=== PATIENT | female | born 2000 | race Caucasian/White ===

== ENCOUNTER → 2025-04-18 | Outpatient (CLI) | payer OTHER, SELFPAY ==
[2025-04-19 21:07] LABS: Chlamydia By Nucleic Acid AMP Negative (Negative); Gonococcus By Nucleic Acid AMP Negative (Negative)
[2025-04-25 00:07] LABS: HPV APTIMA, High Risk Negative (Negative)
== END | disposition home or self-care (01) ==
PROVIDERS: Visit Provider Nurse Practitioner Women's Health
DX: Z12.4 Encounter for screening for malignant neoplasm of cervix (principal); Z11.3 Encounter for screening for infections with a predominantly sexual mode of transmission
CPT/HCPCS: 87491; 87591; 87624; 88175; G0145

== ENCOUNTER → 2025-04-28 | Outpatient (CLI) | payer OTHER, SELFPAY ==
--- OUTSIDE RECORDS SUMMARY | 2025-04-28 18:54 | XMS RPT_ITS | CCD ---
Author Organization [facility] Care Team Providers Care On Car Supervisor Name Role Phone Carmella Augustin Attending Provider Carmella Clifford Attending Unavailable Carmella Clifford Attending Unavailable Problems Problem Classification Problem Date Documented Date Episodic/Chronic Female infertility (2 sources) Female infertility associated with anovulation; Translations: [Female infertility associated with anovulation] Onset: 04-18-2025 Chronic Immunizations and screening for infectious disease (2 sources) Encounter for screening for infections with a predominantly sexual mode of transmission; Translations: [Encounter for screening for infections with a predominantly sexual mode of transmission] Onset: 04-20-2025 Episodic Other screening for suspected conditions (not mental disorders or infectious disease) (4 sources) Encounter for screening for malignant neoplasm of cervix; Translations: [Encounter for screening for malignant neoplasm of cervix] Onset: 04-18-2025 Episodic Other skin disorders (1 source) Hidradenitis suppurativa; Translations: [Hidradenitis suppurativa] 04-18-2025 Episodic Results Test Name Value Interpretation Reference Range Facil ity PAP I-G w/rfx hrHPV-Aptimaon 04-25-2025 ADEQ Comment Normal . [facility] Comment on above: Order Comment: Speci men Comment: [id number] Specimen Comment: No. of containers..01 ThinPrep Vial Result Comment: Sati sfactory for evaluation. Endocervical and/or squamous metaplastic cells (endocervical component) are present. Performed By: #### L 7000.1800, L7400.0353 #### [facility] [address] [place], [address] COMM . Normal . [facility] Comment on above: Order Comment: Speci men Comment: [id number] Specimen Comment: No. of containers..01 ThinPrep Vial Performed By: #### L 7000.1800, L7400.0353 #### [facility] [address] [place], [place], [id number] COMMENT Comment Normal . [facility] Comment on above: Order Comment: Speci men Comment: [id number] Specimen Comment: No. of containers..01 ThinPrep Vial Result Comment: This liquid based ThinPrep(R) pap test was screened with the use of an image guided system. Performed By: #### L 7000.1800, L7400.0353 #### [facility] [address] [facility] [place], [place], [id number] DIAG Comment Abnormal . [facility] Comment on above: Order Comment: Speci men Comment: [id number] Specimen Comment: No. of containers..01 ThinPrep Vial Result Comment: EPIT HELIAL CELL ABNORMALITY. ATYPICAL SQUAMOUS CELLS OF UNDETERMINED SIGNIFICANCE (ASC-US). Performed By: #### L 7000.1800, L7400.0353 #### [facility] [address] [facility] [place], [address] HPV APTIMA, HR Negative Normal Negative [facility] Comment on above: Order Comment: Speci men Comment: [id number] Specimen Comment: No. of containers..01 ThinPrep Vial Result Comment: This nucleic acid amplification test detects fourteen high- risk HPV types (16,18,31,33,35,39,45,51,52,56,58,59,66,68) without differentiation. Performed at: [address] [id number] Director Telemetry: Jackie Delgado MD, Phone: [phone] Performed at: =[address] [id number] Director Telemetry: Jackie Delgado MD, Phone: [phone] Performed By: #### L 7000.1800, L7400.0353 #### [facility] [address] [place], [place], [address] HPV RFLX Comment Normal . [facility] Comment on above: Order Comment: Speci men Comment: [id number] Specimen Comment: No. of containers..01 ThinPrep Vial Result Comment: See below for HPV testing results. Performed By: #### L 7000.1800, L7400.0353 #### [facility] [address] [place], [address] PAPSMR Comment Normal . [facility] Comment on above: Order Comment: Speci men Comment: [id number] Specimen Comment: No. of containers..01 ThinPrep Vial Result Comment: The Pap smear is a screening test designed to aid in the detection of premalignant and malignant conditions of the uterine cervix. It is not a diagnostic procedure and should not be used as the sole means of detecting cervical cancer. Both false-positive and false-negative reports do occur. Performed By: #### L 7000.1800, L7400.0353 #### [facility] [address] [place], [place], [address] Path.prov.IDC-9 Comment Normal . [facility] Comment on above: Order Comment: Speci men Comment: [id number] Specimen Comment: No. of containers..01 ThinPrep Vial Result Comment: [id number] Performed By: #### L 7000.1800, L7400.0353 #### [facility] [address] [place], [address] PERFORM Comment Normal . [facility] Comment on above: Order Comment: Speci men Comment: [id number] Specimen Comment: No. of containers..01 ThinPrep Vial Result Comment: Imani Moya, Photograph Retoucher (ASCP) Performed By: #### L 7000.1800, L7400.0353 #### [facility] [address] [place], [place], [address] SIGN Comment Normal . [facility] Comment on above: Order Comment: Speci men Comment: [id number] Specimen Comment: No. of containers..01 ThinPrep Vial Result Comment: Gloria Oliver MD, Pathologist Performed By: #### L 7000.1800, L7400.0353 #### [facility] [address] [place], [address] Chlamydia/GC AISHA aptimaon CHLAMY,NUC ACID Negative Normal Negative [facility] Comment on above: Performed By: #### L 7000.1800, L7400.0353 #### [facility] [address] [place], [place], [address] GC BY NUC ACID Negative Normal Negative [facility] Comment on above: Result Comment: Perf ormed at: =G - [facility] [address] [id number] Director Telemetry: Jackie Delgado MD, Phone: [phone] Performed By: #### L 7000.1800, L7400.0353 #### [facility] [address] 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) Chief Complaint: Annual Roll Form Operator Required: No Is patient in pain?: No Allergies No Known Allergies Allergy (Unverified 04/18/25 09:16) Medications ???Medication ???Instructions ???Recorded ???Confirmed ???Type NK 04/18/25 04/18/25 History Is last menstrual period known: Yes Last Menstrual Period: 03/27/25 Post menopausal: No Patient : No : No [facility] Medical History (Updated 04/18/25 @ 10:56 by Carmella Clifford 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, 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) Hidradenitis suppurativa Social History (Updated 04/18/25 @ 09:10 by Nalini Crouch) household members: spouse current occupational status: employed 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 No contraception since 2017, was doing NFP and has been attempting X 1 year. Menses occur every 28-30 days, lasting 4 days but light in amount. She does have issues with acne and hirsutism. Last PAP: 2021 History of abnormal PAP: ASCUS neg hpv Last mammogram: age 38 Female Reproductive History Last Menstrual Period: 03/27/25 Cycle Length: 21-35 Questions: metrorrhagia: No, sexually active: Yes, dyspareunia: No and PCB: No ROS Const Constitutional: Denies fatigue, weight gain or weight loss Cardio Card: Denies chest pain Resp Resp: Denies cough or dyspnea on exertion GI GI: Denies abdominal pain, bloating, change in stool character, constipation or vomiting : Reports as per HPI; Denies difficulty voiding, pelvic pain, urinary frequency, urinary incontinence, urinary urgency, vaginal discharge or vaginal pruritus Exam Const General: cooperative, healthy appearing, no acute distress and well developed Orientation: alert, oriented to person and oriented to place [facility] Head: normal to inspection Face and sinus: normal facial exam Neck Neck: normal visual inspection Thyroid: thyroid normal Lymphatic: no lymphadenopathy noted Chest Breast inspection: normal inspection of the breasts, normal inspection of the axillae and Other (dark hair bilateral areola. ) Breast palpation: normal palpation of the breasts, normal palpation of the axillae and no axillary lymphadenopathy Resp Effort Inspection: normal respiratory effort GI Palpation: soft, no masses and nontender Rectal Exam: deferred External Female Exam: normal external appearance and normal appearance of the urethra Urethra: normal appearance of the urethra and normal palpation Speculum Exam - Vagina: normal appearance of the vagina and normal vaginal discharge Speculum Exam - Cervix: normal appearance of the cervix Bimanual Exam- Vagina Uterus: normal bimanual exam, uterine size normal, uterine shape normal and non-tender Bimanual Exam- Adnexa, other: normal adnexae, no masses, normal and non-tender Pelvic Support: normal Skin General: scars (acne on chest) Neuro General: patient alert and patient oriented x3 Psych Affect: normal affect Coding Level of Care Code Off vis,new,prev 18-39yrs Diagnoses Encounter for gynecological examination with abnormal finding Z01.411 Gynecological examination findings: abnormal findings PRESENT Acne, unspecified acne type L70.9 Acne type: unspecified acne Hirsutism L68.0 Fatigue, unspecified type R53.83 Fatigue type: unspecified Assessment and Plan Assessment and Plan (1) Encounter for routine gynecological examination: Qualifiers: Gynecological examination findings: abnormal findings PRESENT Qualified Code(s): Z01.411 - Encounter for gynecological examination (general) (routine) with abnormal findings (2) Acne: Status: Acute Qualifiers: Acne type: unspecified acne Qualified Code(s): L70.9 - Acne, unspecified Comment: sees derm, laser, face, chest, back (3) Hirsutism: Status: Acute (4) Fatigue: Status: Acute Qualifiers: Fatigue type: unspecified Qualified C (more content not included)... 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 Roll Form Operator Required: No Is patient in pain?: No Allergies No Known Allergies Allergy (Unverified 04/18/25 09:16) Medications ???Medication ???Instructions ???Recorded ???Confirmed ???Type NK 04/18/25 04/18/25 History Is last menstrual period known: Yes Last Menstrual Period: 03/27/25 Post menopausal: No Patient : No : No [facility] Medical History (Updated 04/18/25 @ 10:56 by Carmella Clifford 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, 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) Hidradenitis suppurativa Social History (Updated 04/18/25 @ 09:10 by Nalini Crouch) household members: spouse current occupational status: employed 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 No contraception since 2017, was doing NFP and has been attempting X 1 year. Menses occur every 28-30 days, lasting 4 days but light in amount. She does have issues with acne and hirsutism. Last PAP: 2021 History of abnormal PAP: ASCUS neg hpv Last mammogram: age 38 Female Reproductive History Last Menstrual Period: 03/27/25 Cycle Length: 21-35 Questions: metrorrhagia: No, sexually active: Yes, dyspareunia: No and PCB: No ROS Const Constitutional: Denies fatigue, weight gain or weight loss Cardio Card: Denies chest pain Resp Resp: Denies cough or dyspnea on exertion GI GI: Denies abdominal pain, bloating, change in stool character, constipation or vomiting : Reports as per HPI; Denies difficulty voiding, pelvic pain, urinary frequency, urinary incontinence, urinary urgency, vaginal discharge or vaginal pruritus Exam Const General: cooperative, healthy appearing, no acute distress and well developed Orientation: alert, oriented to person and oriented to place [facility] Head: normal to inspection Face and sinus: normal facial exam Neck Neck: normal visual inspection Thyroid: thyroid normal Lymphatic: no lymphadenopathy noted Chest Breast inspection: normal inspection of the breasts, normal inspection of the axillae and Other (dark hair bilateral areola. ) Breast palpation: normal palpation of the breasts, normal palpation of the axillae and no axillary lymphadenopathy Resp Effort Inspection: normal respiratory effort GI Palpation: soft, no masses and nontender Rectal Exam: deferred External Female Exam: normal external appearance and normal appearance of the urethra Urethra: normal appearance of the urethra and normal palpation Speculum Exam - Vagina: normal appearance of the vagina and normal vaginal discharge Speculum Exam - Cervix: normal appearance of the cervix Bimanual Exam- Vagina Uterus: normal bimanual exam, uterine size normal, uterine shape normal and non-tender Bimanual Exam- Adnexa, other: normal adnexae, no masses, normal and non-tender Pelvic Support: normal Skin General: scars (acne on chest) Neuro General: patient alert and patient oriented x3 Psych Affect: normal affect Coding Level of Care Code Off vis,new,prev 18-39yrs Diagnoses Encounter for gynecological examination with abnormal finding Z01.411 Gynecological examination findings: abnormal findings PRESENT Acne, unspecified acne type L70.9 Acne type: unspecified acne Hirsutism L68.0 Fatigue, unspecified type R53.83 Fatigue type: unspecified Assessment and Plan Assessment and Plan (1) Encounter for routine gynecological examination: Qualifiers: Gynecological examination findings: abnormal findings PRESENT Qualified Code(s): Z01.411 - Encounter for gynecological examination (general) (routine) with abnormal findings (2) Acne: Status: Acute Qualifiers: Acne type: unspecified acne Qualified Code(s): L70.9 - Acne, unspecified Comment: sees derm, laser, face, chest, back (3) Hirsutism: Status: Acute (4) Fatigue: Status: Acute Qualifiers: Fatigue type: unspecified Qualified C (more content not included)... Normal [facility] No Panel Informationon 04-01 Thyroid Stimulating Hormone (TSH) 2.78 uIU/mL 0.358-3.74 [facility] Work Phone: Vital Signs Date Time Vital Sign Value Performing Clinician Faci lity 04-18-2025 09:06-0400 Body height 162.56 cm Carmella Clifford 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 Work Phone: [facility] 04-18-2025 09:06-0400 Body mass index (BMI) [Ratio] 20.8 kg/m2 Carmella Clifford 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 Work Phone: [facility] 04-18-2025 09:06-0400 Body weight 55.11 kg Carmella Clifford 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 Work Phone: [facility] 04-18-2025 09:06-0400 Diastolic blood pressure 67 mm[Hg] Carmella Clifford 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 Work Phone: [facility] 04-18-2025 09:06-0400 Systolic blood pressure 101 mm[Hg] Carmella Clifford 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 Work Phone: [facility] Encounters Encounter Date Encounter Type Care Provider Facility Start: 04-18-2025 ambulatory Carmellaestela Clifford Facility :[facility] Start: 04-18-2025 End: 04-18-2025 Patient encounter procedure Carmella Clifford 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 [facility] Work Phone: Start: 04-18-2025 End: 04-18-2025 Patient encounter status Carmella Clifford 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 [facility] Start: 04-18-2025 End: 04-18-2025 ambulatory Carmellaestela Clifford -[facility] Start: 04-01-2022 End: 04-01-2022 Patient encounter procedure [facility], [facility] Plan of Treatment Date Care Activity Detail Author Dehydroepiandrostero ne sulfate (DHEA-S) [Mass/volume] in Serum or Plasma [facility] pital Liquid based cervical cytology screening [facility] Prolactin measurement [facility] Testosterone Free [M ass/volume] in Serum or Plasma [facility] Thyroid stimulating hormone measurement [facility] Payers Date Payer Category Payer Self-pay 2025 Unknown [id number] [employer] ( and others) [id number] Unknown [id number] Unknown [id number] Social History Date Type Detail Facility Tobacco smoking stat [facility] Unknown if ever smoked [facility] Work Phone: Start: 2000 Sex Assigned At Female [facility] Start: 04-18-2025 Tobacco smoking stat [facility] Never smoked tobacco (finding) [facility] Evaluation note Note Date & Type Note Facility Evaluation note No assessment information availa ble [facility] Work Phone: Evaluation note Note Date & Type Note Facility Evaluation note Diagnosis Onset Date Resolution Encounter for routine gynecological examination noneactive April 18, 2025 9:01am [facility] Work Phone: Reason for referral (narrative) Note Date & Type Note Facility Reason for referral (narrative) No reason for referral information available [facility] Work Phone: Chief Complaint and Reason for Visit Chief Complaint 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 18, 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 9:0 1am Reason for Visit Admit Date Encounter for routine gynecological exam ination April 18, 2025 9:01am Summary Purpose Family History No Family History Records FoundNo Family History Records Found Advance Directives No Advanced Directives Records FoundNo Advanced Directives Records Found Additional Source Comments Goals (unrecognized section and content) Goals may be documented in a n alternate sectionGoals may be documented in an alternate section Care Teams (unrecognized sec tion and content) Team Status: Inactive Member Role/Relationship Status Dates BRYAN Martinez NPC Attending Provider Active Start: April 18, 2025 End: April 18, 2025 INFORMATION SOURCE (unrecogn ized section and content) DATE CREATED AUTHOR 04/26/2025 [facility] DATE CREATED AUTHOR 'S VANCE ATRED 04/27/2025 [facility] FOR RECORDS PERTAINING TO PATIENTS WHO ARE OR HAVE BEEN ENROLLED IN A CHEMICAL DEPENDENCY/SUBSTANCEABUSE PROGRAM, SOME INFORMATION MAY BE OMITTED. This clinical summary was aggregated from multiple sources. Caution should be exercised in using it in the provision of clinical care. This summary normalizes information from multiple sources, and as a consequence, information in this document may materially change the coding, format and clinical context of patient data. In addition, data may be omitted in some cases. CLINICAL DECISIONS SHOULD BE BASED ON THE PRIMARY CLINICAL RECORDS. [facility]. provides no warranty or guarantee of the accuracy or completeness of information in this document.
== END | disposition home or self-care (01) ==
PROVIDERS: Visit Provider Nurse Practitioner Women's Health
DX: N97.0 Female infertility associated with anovulation (principal)
CPT/HCPCS: 82627; 84146; 84402; 84443; 82626

== ENCOUNTER → 2025-05-17 | Outpatient (CLI) | payer OTHER, SELFPAY ==
[2025-05-19 04:07] LABS: PROGESTERONE 12.4 ng/mL (.)
== END | disposition home or self-care (01) ==
PROVIDERS: Visit Provider Nurse Practitioner Women's Health
DX: N97.0 Female infertility associated with anovulation (principal)
CPT/HCPCS: 36415; 84144

== ENCOUNTER → 2025-06-30 | Outpatient (CLI) | payer OTHER, SELFPAY ==
--- NOTE | 2025-06-30 12:59 | US_ITS ---
PROCEDURE: PELVIC W/ TRANSVAGINAL REASON FOR EXAM: INFERTILITY TECHNIQUE: Procedure Code: USPELTVAG Modality: US Procedure: PELVIC W/ TRANSVAGINAL COMPARISON: None FINDINGS: LMP: June 24, 2025. Measurements: Uterus: 8.4 cm x 5 cm x 3.3 cm with a volume of 71.9 mL Endometrial Thickness: 2 mm. It is hyperechoic. Right Ovary: 3.7 cm x 3 cm x 2.6 cm with a volume of 14.8 mL. Left Ovary: 4.7 cm x 2.9 cm x 3 cm with a volume of 21.3 mL. TRANSABDOMINAL: Uterus: Normal size, myometrial echotexture, and contour. Endometrium: Unremarkable. Right ovary: Multiple small follicles are visualized. Left ovary: Multiple small follicles are visualized. Other: No large pelvic mass identified. Transvaginal sonography was performed to better visualize the endometrium. TRANSVAGINAL: Uterus: Anteverted. Normal contour and myometrial echotexture. Endometrium: Normal echotexture. Right ovary: Normal size and echotexture. Left ovary: Normal size and echotexture. Other adnexal findings: None. Cul-de-sac: No free intraperitoneal fluid identified. Tenderness: No tenderness US/Pelvic w/ Transvaginal IMPRESSION: NORMAL TRANSABDOMINAL AND TRANSVAGINAL PELVIC ULTRASOUND. Multiple small bilateral ovarian follicles are seen. Reading Location: [place] [address]
--- NOTE | 2025-06-30 12:59 | US_ITS ---
PROCEDURE: PELVIC W/ TRANSVAGINAL REASON FOR EXAM: INFERTILITY TECHNIQUE: Procedure Code: USPELTVAG Modality: US Procedure: PELVIC W/ TRANSVAGINAL COMPARISON: None FINDINGS: LMP: June 24, 2025. Measurements: Uterus: 8.4 cm x 5 cm x 3.3 cm with a volume of 71.9 mL Endometrial Thickness: 2 mm. It is hyperechoic. Right Ovary: 3.7 cm x 3 cm x 2.6 cm with a volume of 14.8 mL. Left Ovary: 4.7 cm x 2.9 cm x 3 cm with a volume of 21.3 mL. TRANSABDOMINAL: Uterus: Normal size, myometrial echotexture, and contour. Endometrium: Unremarkable. Right ovary: Multiple small follicles are visualized. Left ovary: Multiple small follicles are visualized. Other: No large pelvic mass identified. Transvaginal sonography was performed to better visualize the endometrium. TRANSVAGINAL: Uterus: Anteverted. Normal contour and myometrial echotexture. Endometrium: Normal echotexture. Right ovary: Normal size and echotexture. Left ovary: Normal size and echotexture. Other adnexal findings: None. Cul-de-sac: No free intraperitoneal fluid identified. Tenderness: No tenderness US/Pelvic w/ Transvaginal IMPRESSION: NORMAL TRANSABDOMINAL AND TRANSVAGINAL PELVIC ULTRASOUND. Multiple small bilateral ovarian follicles are seen. Reading Location: [place] [address]
--- OUTSIDE RECORDS SUMMARY | 2025-06-30 13:23 | XMS RPT_ITS | CCD ---
Author Organization [facility] CliniSysd Care Team Providers Care Hotel Front Desk Clerk Name Role Phone Venessa GOLDBERG-C, Carmella Attending Provider [phone] Carmella Clifford Attending Unavailable Venessa, Carmella Attending Unavailable Jeremías MORALES, Dr. Andrade Attending Provider [phone] Venessa BONDS, Carmella Attending Physician [id number] Jeremías MORALES, Dr. Andrade Attending Physician Venessa LATHE OPERATOR CONTACT LENS, Carmella Attending Unavailable Lupe Veronica Attending Unavailable Venessa LATHE OPERATOR CONTACT LENS, Carmella Attending Unavailable Venessa LATHE OPERATOR CONTACT LENS, Carmella Attending Unavailable Venessa LATHE OPERATOR CONTACT LENS, Carmella Attending Unavailable Ameya Mei Primary Care Unavailable Lupe Veronica Referring Unavailable Lupe Veronica Attending Unavailable Medications Current Medications Medication Drug Class(es) Dates Sig (Normalized) Sig (Original) Crane (Nk) (4 sources) Start: 04-18-2025 Crane (Nk) A ctive April 18, 2025 12:00am Completed/Discontinued Medications Medication Drug Class(es) Dates Sig (Normalized) Sig (Original) ethinyl estradiol 0.035 mg / norethindrone 1 mg oral tablet (20 sources) Estrogen Start: 09-30-2017 End: 05-21-2025 Norethindrone-Ethin Estradiol (Alyacen 1/35 (28)) 1-35 mg-mcg tablet Discontinued 1 {tbl} PO daily 84 3 April 09, 2018 8:24am May 21, 2025 8:26am spironolactone 25 mg oral tablet (4 sources) Aldosterone Antagonist Start: 09-30-2017 End: 05-22-2025 take 1 tablet by mouth once daily in the morning Spironolactone (Aldactone) 25 mg tablet Discontinued 25 mg PO EVERY MORNING September 30, 2017 1:00am May 22, 2025 8:37am Problems Problem Classification Problem Date Documented Date Episodic/Chronic Cancer of cervix (4 sources) Cervical atypism; Translations: [Atypical squamous cells of undetermined significance on cytologic smear of cervix (ASC-US)] 04-26-2025 Episodic Comment on above: Neg HPV, Rpt Pap in 3 yrs Contraceptive and procreative management (2 sources) Patient encounter status; Translations: [Encounter for procreative management, unspecified] 06-06-2025 Episodic Comment on above: Refer to Female infertility (3 sources) Female infertility associated with anovulation; Translations: [Female infertility associated with anovulation] Onset: 04-18-2025 Chronic Immunizations and screening for infectious disease (1 source) Encounter for screening for infections with a predominantly sexual mode of transmission; Translations: [Encounter for screening for infections with a predominantly sexual mode of transmission] Onset: 04-20-2025 Episodic Malaise and fatigue (8 sources) Fatigue; Translations: [Other fatigue] 04-26-2025 Episodic Other screening for suspected conditions (not mental disorders or infectious disease) (3 sources) Encounter for screening for malignant neoplasm of cervix; Translations: [Encounter for screening for malignant neoplasm of cervix] Onset: 04-18-2025 Episodic Other skin disorders (5 sources) Hidradenitis suppurativa; Translations: [Hidradenitis suppurativa] 04-18-2025 Episodic Other skin disorders (10 sources) Acne; Translations: [Acne, unspecified] 04-26-2025 Episodic Comment on above: sees derm, laser, fa ce, chest, back Other skin disorders (10 sources) Hirsutism; Translations: [Hirsutism] 04-26-2025 Episodic Residual codes; unclassified (5 sources) Infertile 05-21-2025 Episodic Comment on above: Normal day 3 labs an d 21 day progesterone. Need SA and if normal will do HSG Normal day 3 labs an d 21 day progesterone. Need SA and if normal will do HSG. referral to RGI recommended now as likely has diagnosis that dyan require their intervention Results Test Name Value Interpretation Reference Range Facility Product Promoter Sales Person Office Visit Reporton 05-22-2025 Product Promoter Sales Person Office Visit Report [facility]'[address], [address] [place] [id number] OFFICE VISIT Date of Service: 05/22/25 MR#: [id number] Acct: [id number] Name: MITCHELL REYNA Rep #: [id number] : 2000 Provider: Dr. 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 Is patient in pain?: No Allergies No Known Allergies Allergy (Unverified 05/22/25 08:37) Medications ???Medication ???Instructions ???Recorded ???Confirmed ???Type NK 04/18/25 05/22/25 History Is last menstrual period known: Yes Last Menstrual Period: 04/27/25 Post menopausal: No Patient : No : No [facility] Medical History Hidradenitis Hidradenitis suppurativa Social History household members: spouse current occupational status: employed 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 The couple has been trying to conceive for over a year, regular menses, without success, prompting further evaluation. The patient reports regular menstrual cycles occurring every 21 to 35 days, typically starting on the 14th or 15th of each month. Her cycles are described as light and not painful. She has a history of hirsutism and acne, which are noted as her only symptoms. She was previously on aldactone but has been off it for a couple of years. Laboratory tests indicate normal thyroid function and male hormone levels, with healthy ovarian reserve for her age. Progesterone levels were measured at 12.4 on day 21 of her cycle, indicating a normal luteal phase. Attestation: Documentation on this patient encounter was supported using ambient scribe technology/ voice AI technology. The patient consented to recording for the purpose of documenting the encounter. Provider reviewed content of the generated note prior to signature. Female Reproductive History Last Menstrual Period: 04/27/25 History 0 Elective abortions Hx Para Spontaneous abortions Hx # Term Pregnancies Ectopic pregnancies Hx # Pregnancies Multiple births # of living children ROS ROS Narrative - Endocrine: Reports regular menstrual cycles, denies heavy or painful periods. - Dermatological: Reports hirsutism and acne. Exam Const General: cooperative, healthy appearing, no acute distress and well developed Orientation: alert, oriented to person and oriented to place HENMT Head: normal to inspection Face and sinus: normal facial exam Skin General: scars (acne on chest) Psych Affect: normal affect Coding Level of Care Code Off vis,est,level 4 Diagnoses Infertility Hirsutism L68.0 Acne, unspecified acne type L70.9 Acne type: unspecified acne Assessment and Plan Assessment and Plan (1) Infertility: Status: Acute Comment: Normal day 3 labs and 21 day progesterone. Need SA and if normal will do HSG. referral to RGI recommended now as likely has diagnosis that dyan require their intervention (2) Hirsutism: Status: Acute (3) Acne: Status: Acute Qualifiers: Acne type: unspecified acne Qualified Code(s): L70.9 - Acne, unspecified Comment: sees derm, laser, face, chest, back Orders: Orders PROGESTERONE Today N97.0 - Female infertility associated with anovulation Plan Assessment and Plan 25-year-old female with a history of polycystic ovary syndrome presenting with infertility. The patient's regular menstrual cycles and normal hormonal levels suggest ovulatory cycles, but the pr esence of hirsutism and acne may indicate underlying PCOS. The infertility workup is ongoing, with a semen analysis and hysterosalpingogram recommended to assess male factors and tubal patency, respectively. A pelvic ultrasound is also advised to evaluate for any structural abnormalities such as fibroids or cysts. 1. Infertility The plan includes conducting a semen analysis to evaluate male fertility factors, as 40% of infertility cases are male or combined. A hysterosalpingogram (HSG) is recommended to assess the patency of the fallopian tubes and the uterine cavity. A pelvic ultrasound will be performed to check for any structural abnormalities such as fibroids or cysts. (more content not included)... Normal [facility] PROGESTERONE 4317on 05-19-20 25 PROGESTERONE 12.4 ng/mL Normal . [facility] Comment on above: Order Comment: N Result Comment: Foll icular phase 0.1 - 0.9 Luteal phase 1.8 - 23.9 Ovulation phase 0.1 - 12.0 First trimester 11.0 - 44.3 Second trimester 25.4 - 83.3 Third trimester 58.7 - 214.0 Postmenopausal 0.0 - 0.1 Performed at: [facility] [address] [id number] [employer] Operator: Ismael Acevedo PhD, Phone: [phone] Performed By: #### L 801.2600 #### [facility] [address] [place], [address] DHEA Sulfateon 05-06-2025 DHEA SULFATE 121.0 ug/dL Normal 84.8-378.0 [facility] Comment on above: Order Comment: N Performed By: #### L 900.0111, L3100.5400, L501.9520, L3300.1500, L3400.4800 #### [facility] [address] [place], [address] PROLACTIN 4465on 05-06-2025 PROLACTIN 17.4 ng/mL Normal 4.8-33.4 [facility] Comment on above: Performed By: #### L 900.0111, L3100.5400, L501.9520, L3300.1500, L3400.4800 #### [facility] [address] [place], [address] Testosterone Freeon 05-06-20 25 TESTOSTER FREE 0.6 pg/mL Normal 0.0-4.2 [facility] Comment on above: Result Comment: Perf ormed at: [address] [id number] [employer] Operator: Ismael Acevedo PhD, Phone: [phone] Performed at: [facility] - [facility] [id number] [employer] Operator: Chanel Zelaya MD, Phone: [phone] Performed By: #### L 900.0111, L3100.5400, L501.9520, L3300.1500, L3400.4800 #### [facility] [address] [place], [place], [id number] L900.0111on 04-28-2025 REPROSOURCE SEE SCANNED REPORT Normal [facility] Comment on above: Performed By: #### L 900.0111, L3100.5400, L501.9520, L3300.1500, L3400.4800 #### [facility] [address] [facility]. [place], [place], [address] No Panel InformationOrdered By: Carmella Clifford on 04-28-2025 Miscellaneous Test Comment SEE SCANNED REPORT [facility] Serum or plasma free testost erone measurement (mass/volume)Ordered By: Carmella Clifford on 04-28-2025 Testosterone Free [Mass/Vol] 0.6 pg/mL 0.0-4.2 [facility] Comment on above: Performed at: [address] [id number] Director: Ismael Acevedo PhD, Phone: [phone] at: [employer] [facility] [id number] Director: Chanel Zelaya MD, Phone: [phone] Serum or plasma prolactin me asurement (mass/volume)Ordered By: Carmella Clifford on 04-28-2025 Prolactin [Mass/Vol] 17.4 ng/mL 4.8-33.4 [facility] TSH DL <= 0.005 mIU/L QnOrde red By: Carmella Clifford on 04-28-2025 TSH Qn 3.960 uIU/mL 0.300-4.200 [facility] Thyroid Stim Hormone (TSH)on 04-28-2025 TSH 3.960 uIU/mL Normal 0.300-4.200 [facility] Comment on above: Performed By: #### L 900.0111, L3100.5400, L501.9520, L3300.1500, L3400.4800 #### [facility] [address] [place], [address] PAP I-G w/rfx hrHPV-Aptimaon 04-25-2025 ADEQ Comment Normal . [facility] Comment on above: Order Comment: Speci men Comment: [id number] Specimen Comment: No. of containers..01 ThinPrep Vial Result Comment: Sati sfactory for evaluation. Endocervical and/or squamous metaplastic cells (endocervical component) are present. Performed By: #### L 7000.1800, L7400.0353 #### [facility] [address] [place], [address] Performed By: #### L 7400.0353, L7000.1800 #### [facility] [address] [place], [address] COMM . Normal . [facility] Comment on above: Order Comment: Speci men Comment: [id number] Specimen Comment: No. of containers..01 ThinPrep Vial Performed By: #### L 7000.1800, L7400.0353 #### [facility] [address] [place], [address] Performed By: #### L 7400.0353, L7000.1800 #### [facility] [address] [place], [address] COMMENT Comment Normal . [facility] Comment on above: Order Comment: Speci men Comment: [id number] Specimen Comment: No. of containers..01 ThinPrep Vial Result Comment: This liquid based ThinPrep(R) pap test was screened with the use of an image guided system. Performed By: #### L 7000.1800, L7400.0353 #### [facility] [address] [place], [address] Performed By: #### L 7400.0353, L7000.1800 #### [facility] [address] [place], [address] DIAG Comment Abnormal . [facility] Comment on above: Order Comment: Speci men Comment: [id number] Specimen Comment: No. of containers..01 ThinPrep Vial Result Comment: EPIT HELIAL CELL ABNORMALITY. ATYPICAL SQUAMOUS CELLS OF UNDETERMINED SIGNIFICANCE (ASC-US). Performed By: #### L 7000.1800, L7400.0353 #### [facility] [address] [place], [address] Performed By: #### L 7400.0353, L7000.1800 #### [facility] [address] [place], [address] HPV APTIMA, HR Negative Normal Negative [facility] Comment on above: Order Comment: Speci men Comment: [id number] Specimen Comment: No. of containers..01 ThinPrep Vial Result Comment: This nucleic acid amplification test detects fourteen high- risk HPV types (16,18,31,33,35,39,45,51,52,56,58,59,66,68) without differentiation. Performed at: - [address] [id number] [employer] Operator: Jackie Delgado MD, Phone: [phone] Performed at: = - [address] [id number] [employer] Operator: Jackie Delgado MD, Phone: [phone] Performed By: #### L 7000.1800, L7400.0353 #### [facility] [address] [place], [address] Performed By: #### L 7400.0353, L7000.1800 #### [facility] [address] [place], [address] HPV RFLX Comment Normal . [facility] Comment on above: Order Comment: Speci men Comment: [id number] Specimen Comment: No. of containers..01 ThinPrep Vial Result Comment: See below for HPV testing results. Performed By: #### L 7000.1800, L7400.0353 #### [facility] [address] [place], [address] Performed By: #### L 7400.0353, L7000.1800 #### [facility] [address] [place], [address] PAPSMR Comment Normal . [facility] Comment on above: Order Comment: Speci men Comment: [id number] Specimen Comment: No. of containers..01 ThinPrep Vial [...] Performed By: #### L 7000.1800, L7400.0353 #### [facility] [address] [place], [address] Performed By: #### L 7400.0353, L7000.1800 #### [facility] [address] [place], [address] Path.prov.IDC-9 Comment Normal . [facility] Comment on above: Order Comment: Speci men Comment: [id number] Specimen Comment: No. of containers..01 ThinPrep Vial Result Comment: R87. 610 Performed By: #### L 7000.1800, L7400.0353 #### [facility] [address] [place], [address] Performed By: #### L 7400.0353, L7000.1800 #### [facility] [address] [place], [address] PERFORM Comment Normal . [facility] Comment on above: Order Comment: Speci men Comment: [id number] Specimen Comment: No. of containers..01 ThinPrep Vial Result Comment: Imani Moya, Bag Making Machine Tender (ASCP) Performed By: #### L 7000.1800, L7400.0353 #### [facility] [address] [place], [address] Performed By: #### L 7400.0353, L7000.1800 #### [facility] [address] [place], [address] SIGN Comment Normal . [facility] Comment on above: Order Comment: Speci men Comment: [id number] Specimen Comment: No. of containers..01 ThinPrep Vial Result Comment: Gloria Oliver MD, Pathologist Performed By: #### L 7000.1800, L7400.0353 #### [facility] [address] [place], [address] Performed By: #### L 7400.0353, L7000.1800 #### [facility] [address] [place], [address] Chlamydia/GC AISHA aptimaon CHLAMY,NUC ACID Negative Normal Negative [facility] Comment on above: Performed By: #### L 7000.1800, L7400.0353 #### [facility] [address] [place], [address] Performed By: #### L 7400.0353, L7000.1800 #### [facility] [address] [place], [address] GC BY NUC ACID Negative Normal Negative [facility] Comment on above: Result Comment: Perf ormed at: =G - [facility] [address] [place], [place] [id number] [employer] Operator: Jackie Delgado MD, Phone: [phone] Performed By: #### L 7000.1800, L7400.0353 #### [facility] [address] [place], [place], [address] Performed By: #### L 7400.0353, L7000.1800 #### [facility] [address] [place], [address] Cervical or vagninal specime n microscopic examination by cytology stain (reported asOrdered By: Carmella Clifford on 04-18-2025 Cytology report Cyto stain Doc (Cvx/Vag) Comment . [facility] Comment on above: The Pap smear is a s creening test designed to aid in thedetection of premalignant and malignant conditions of theuterine cervix. It is not a diagnostic procedure andshould not be used as the sole means of detecting cervicalcancer. Both false-positive and false-negative reports dooccur. Chlamydia trachomatis rRNA d etection by probe and target amplification methodOrdered By: Carmella Clifford on 04-18-2025 C. trachomatis rRNA AISHA+probe Ql (Unsp spec) Negative Negative [facility] - CytologyOrdered By: Carmella Clifford on 04-18-2025 Bag Making Machine Tender Cyto stain Nom (Cvx/Vag) [ID] Comment . [facility] Comment on above: Imani Moya, Cyto logist (ASCP) Pathologist Cyto stain Nom (Cvx/Vag) [ID] Comment . [facility] Comment on above: Rosita Oliver MD, P athologist Laboratory - Miscellaneous t estsOrdered By: Carmella Clifford on 04-18-2025 Service comment (Unsp spec) [Interp] . . [facility] Neisseria gonorrhoeae nuclei c acid detection by amplified probe techniqueOrdered By: Carmella Clifford on 04-18-2025 N. gonorrhoeae DNA AISHA+probe Ql (Unsp spec) Negative Negative [facility] Comment on above: Performed at: =G - [facility] [id number] [place] [id number] Director: Jackie Delgado MD, Phone: [phone] No Panel InformationOrdered By: Carmella Clifford on 04-18-2025 Pap Smear Specimen Adequacy Comment . [facility] Comment on above: Satisfactory for edin luation. Endocervical and/or squamous metaplasticcells (endocervical component) are present. Pathology report final diagnosis Narrative Comment . 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) Chief Complaint: 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 Is patient in pain?: No Allergies No Known Allergies Allergy (Unverified 04/18/25 09:16) Medications ???Medication ???Instructions ???Recorded ???Confirmed ???Type NK 04/18/25 04/18/25 History Is last menstrual period known: Yes Last Menstrual Period: 03/27/25 Post menopausal: No Patient : No : No [facility] History (Updated 04/18/25 @ 10:56 by Carmella Clifford NP, ASHLYN-C) Hidradenitis suppurativa Social History (Updated 04/18/25 @ 09:10 by Nalini Crouch) household members: spouse current occupational status: employed 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 Is patient in pain?: No Allergies No Known Allergies Allergy (Unverified 04/18/25 09:16) Medications ???Medication ???Instructions ???Recorded ???Confirmed ???Type NK 04/18/25 04/18/25 History Is last menstrual period known: Yes Last Menstrual Period: 03/27/25 Post menopausal: No Patient : No : No [facility] Medical History (Updated 04/18/25 @ 10:56 by Carmella Clifford NP, ASHLYN-C) Hidradenitis suppurativa Social History (Updated 04/18/25 @ 09:10 by Nalini rCouch) household members: spouse current occupational status: employed 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 Normal [facility] No Panel Informationon 04-01 Thyroid Stimulating Hormone (TSH) 2.78 uIU/mL 0.358-3.74 [facility] Work Phone: Vital Signs Date Time Vital Sign Value Performing Clinician [facility] 05-22-2025 08:38-0400 Body height 162.56 cm 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 Phone: [facility] 05-22-2025 08:37-0400 Body mass index (BMI) [Ratio] 21.2 kg/m2 Carmella Aquinos LATHE OPERATOR CONTACT LENS-C Work Phone: [facility] 05-22-2025 08:37-0400 Body weight 56.24 kg 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 Phone: [facility] 05-22-2025 08:37-0400 Diastolic blood pressure 75 mm[Hg] 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 Phone: [facility] 05-22-2025 08:37-0400 Systolic blood pressure 123 mm[Hg] Carmella Venessa LATHE OPERATOR CONTACT LENS-C Work Phone: [facility] 04-18-2025 09:06-0400 Body height 162.56 cm Carmella Venessa LATHE OPERATOR CONTACT LENS-C Work Phone: [facility] 04-18-2025 09:06-0400 Body mass index (BMI) [Ratio] 20.8 kg/m2 Carmella Venessa LATHE OPERATOR CONTACT LENS-C Work Phone: [facility] 04-18-2025 09:06-0400 Body weight 55.11 kg Carmella Venessa LATHE OPERATOR CONTACT LENS-C Work Phone: [facility] 04-18-2025 09:06-0400 Diastolic blood pressure 67 mm[Hg] Carmella [place] LATHE OPERATOR CONTA[employer] L[employer]-C Work Phone: [facility] 04-18-2025 09:06-0400 Systolic blood pressure 101 mm[Hg] Carmella [place] LATHE OPERATOR [employer]TA[employer] Work Phone: [facility] Encounters Encounter Date Encounter Type Care Provider Facility Start: 06-30-2025 ambulatory Ameya Mei Facilit y:[facility] Start: 05-22-2025 End: 05-22-[address] Lupe Veronica MD -[facility] Work Phone: Start: 05-22-2025 End: 05-22-2025 ambulatory Lupe Veronica -[facility] Start: 05-17-2025 End: 05-17-2025 ambulatory Carmella [place] [employer]HE OPERATOR [employer] Work Phone: -[facility] Start: 05-17-2025 End: 05-17-2025 Patient encounter procedure Carmella Aquinos LATHE OPERATOR CONTACT [employer]-C -Lab [facility] Start: 05-17-2025 End: 05-17-2025 ambulatory Carmella Venessa LATHE OPERATOR CONTACT LENS Facility:[facility] Start: 04-28-2025 End: 04-28-2025 ambulatory Carmella Venessa [employer]HE OPERATOR [employer] Work Phone: -[facility] Start: 04-28-2025 End: 04-28-2025 Patient encounter procedure Carmella Clifford LATHE OPERATOR CONTACT [employer]-C -Lab [facility] Start: 04-28-2025 End: 04-28-2025 ambulatory Carmellaestela Clifford LATHE OPERATOR CONTACT LENS Facility:[facility] Start: 04-18-2025 End: 04-18-2025 Patient encounter procedure Carmella Clifford LATHE OPERATOR [employer]TA[employer]-C -Laboratory Specimen Work Phone: Start: 04-18-2025 End: 04-18-2025 ambulatory Carmellaestela Clifford Facility:[facility] Start: 04-18-2025 End: 04-18-2025 Patient encounter procedure Carmella Clifford LATHE OPERATOR CONTACT L[employer]-C -[facility] Work Phone: Start: 04-18-2025 End: 04-18-2025 Patient encounter status Carmella Clifford LATHE OPERATOR CONTACT L[employer]-C [facility] Start: 04-18-2025 End: 04-18-2025 ambulatory Carmellaestela Clifford -[facility] Start: 04-18-2025 End: 04-18-2025 ambulatory Carmellaestela Clifford LATHE OPERATOR CONTACT LENS Facility:[facility] Start: 04-01-2022 End: 04-01-2022 Patient encounter procedure [facility] Procedures Date Procedure Procedure Detail Performing Clinician Start: 05-17-2025 Serum progesterone measurement 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 Phone: Comment on above: Follicular phase 0.1 - 0.9 Luteal phase 1.8 - 23.9 Ovulation phase 0.1 - 12.0 First trimester 11.0 - 44.3 Second trimester 25.4 - 83.3 Third trimester 58.7 - 214.0 Postmenopausal 0.0 - 0.1Performed at: [facility] [id number] Director: Ismael Acevedo PhD, Phone: [phone] Start: 04-28-2025 Dehydroepiandrostero ne sulfate level 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 Phone: Start: 04-18-2025 Liquid based cervica l cytology screening 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 This liquid based Th inPrep(R) pap test was screened withthe use of an image guided system. See below for HPV te sting results. Plan of Treatment Date Care Activity Detail Author Start: 05-22-2025 Serum progesterone measurement [facility] Start: 04-28-2025 Dehydroepiandrostero ne sulfate (DHEA-S) [Mass/volume] in Serum or Plasma [facility] Start: 04-28-2025 Prolactin measurement [facility] Start: 04-28-2025 Testosterone Free [M ass/volume] in Serum or Plasma [facility] Dehydroepiandrostero ne sulfate (DHEA-S) [Mass/volume] in Serum or Plasma [facility] Liquid based cervica l cytology screening [facility] Prolactin measurement [facility] Testosterone Free [M ass/volume] in Serum or Plasma [facility] Thyroid stimulating hormone measurement [facility] Payers Date Payer Category Payer Self-pay 2025 Unknown [id number] Department of [facility] e ([facility] and others) [id number] Private Health Insurance [id number] Private Health Insurance [id number] Unknown [id number] Unknown [id number] Unknown [id number] Unknown [id number] Unknown [id number] Unknown [id number] Unknown [id number] Social History Date Type Detail Facility [facility] Work Phone: Start: 2000 Sex Assigned At Female [facility] Start: 04-18-2025 [facility] Never [facility] (finding) [facility] Sex Female [facility] Evaluation note 04-18-2025 Note Date & Type Note Facility 04-18-2025 Evaluation note Diagnosis Onset Date Resolution Acne acute April 18 9:01am Fatigue acute April 18 9:01am Hirsutism acute April 18 9:01am Encounter for routine gynecological examination noneactive April 18, 2025 9:01am [facility] Work Phone: Evaluation note 04-18-2025 Note Date & Type Note Facility 04-18-2025 Evaluation note Diagnosis Onset Date Resolution Acne acute April 18 9:01am Fatigue acute April 18 9:01am Hirsutism acute April 18 9:01am Encounter for routine gynecological examination noneactive April 18, 2025 9:01am Acne acute May 22, 2025 8:31am Hirsutism acute May 22, 2025 8:31am Infertility acute May 8:31am [facility] Work Phone: Evaluation note Note Date & Type Note Facility Evaluation note No assessment information availa [facility] Work Phone: Evaluation note Note Date & Type Note Facility Evaluation note Diagnosis Onset Date Resolution Encounter for routine gynecological examination noneactive April 18, 2025 9:01am [facility] [employer] Work Phone: Reason for referral (narrative) Note Date & Type Note Facility Reason for referral (narrative) No reason for referral information available [facility] Work Phone: Chief Complaint and Reason for Visit Chief Complaint Admit Date Annual ([employer]CHITECT) April 18, 2025 9:0 1am INFERTILITY F/U May 22, 2025 8:31am Reason for Visit Admit Date Acne April 18, 2025 9:0 1am Fatigue April 18, 2025 9:0 1am Hirsutism April 18, 2025 9:0 1am Encounter for routine gynecological exam ination April 18, 2025 9:01am Chief Complaint Admit Date Annual ([employer] ARCHITECT) April 18, 2025 9:0 1am Reason for Visit Admit Date Encounter for routine gynecological exam ination April 18, 2025 9:01am Reason for Visit Admit Date Acne April 18, 2025 9:0 1am Fatigue April 18, 2025 9:0 1am Hirsutism April 18, 2025 9:0 1am Encounter for routine gynecological exam ination April 18, 2025 9:01am Acne May 22, 2025 8:31am Hirsutism May 22, 2025 8:31am Infertility May 22, 2025 8:31am Summary Purpose Family History No Family History Records FoundNo Family History Records Found Advance Directives No Advanced Directives Records FoundNo Advanced Directives Records Found Additional Source Comments Goals (unrecognized section and content) Goals may be documented in a n alternate sectionGoals may be documented in an alternate sectionGoals may be documented in an alternate sectionGoals may be documented in an alternate sectionGoals may be documented in an alternate sectionGoals may be documented in an alternate section Care Teams (unrecognized sec tion and content) Team Status: Inactive Member Role/Relationship Status Dates Carmella Clifford NP, NP-C Attending Provider Active Start: April 18, 2025 End: April 18, 2025 Team Status: Active Member Role/Relationship Status Dates Carmella Clifford NP, NP-C Attending Provider Active Start: April 18, 2025 Team Status: Inactive Member Role/Relationship Status Dates Carmella Clifford NP, NP-C Attending Provider Active Start: April 28, 2025 End: April 28, 2025 Team Status: Active Member Role/Relationship Status Dates Carmella Clifford NP, NP-C Attending Provider Active Start: May 17, 2025 Team Status: Inactive Member Role/Relationship Status Dates Dr. 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 Lupe Veronica MD Attending physician Active Start: May 22, 2025 End: May 22, 2025 INFORMATION SOURCE (unrecogn ized section and content) DATE CREATED AUTHOR 04/26/2025 [facility] DATE CREATED AUTHOR AUTHOR'S ORGANIZ ATION 06/26/2025 [facility] FOR RECORDS PERTAINING TO PATIENTS WHO [...] BE BASED ON THE PRIMARY CLINICAL RECORDS. [facility] provides no warranty or guarantee of the accuracy or completeness of information in this document.
--- OUTSIDE RECORDS SUMMARY | 2025-06-30 13:23 | XMS RPT_ITS | CCD ---
Author Organization [facility] CliniSyca Care Team Providers Care Stockroom Supervisor Name Role Phone Venessa GOLDBERG-C, Carmella Attending Provider [phone] Carmella Clifford Attending Unavailable Venessa, Carmella Attending Unavailable Jeremías MORALES, Dr. Andrade Attending Provider [phone] Venessa BONDS, Carmella Attending Physician [id number] Jeremías MORALES, Dr. Andrade Attending Physician Venessa MEDICAL INVESTIGATOR, Carmella Attending Unavailable Lupe Veronica Attending Unavailable Venessa MEDICAL INVESTIGATOR, Carmella Attending Unavailable Venessa MEDICAL INVESTIGATOR, Carmella Attending Unavailable Venessa MEDICAL INVESTIGATOR, Carmella Attending Unavailable Ameya Mei Primary Care Unavailable Lupe Veronica Referring Unavailable Lupe Veronica Attending Unavailable Medications Current Medications Medication Drug Class(es) Dates Sig (Normalized) Sig (Original) Halsey (Nk) (4 sources) Start: 04-18-2025 Halsey (Nk) A ctive April 18, 2025 12:00am [...] Test Name Value Interpretation Reference Range Facility Repair Service Dispatcher Office Visit Reporton 05-22-2025 Repair Service Dispatcher Office Visit Report [facility], [address] [place] [id number] OFFICE VISIT Date of Service: 05/22/25 MR#: [id number] Acct: [id number] Name: MITCHELL REYNA Rep #: [id number] 9 : 2000 Provider: Dr. Lupe nguyen MD Age/Sex: 25/F Location: [facility] Status: Signed Intake Vital Signs 05/22/25 08:37 05/22/25 08:38 Height 5 ft 4 in 5 ft 4 in Weight: 124 lb BMI 21.2 BP 123/75 H Intake Visit Reasons: INFERTILITY F/U Income Tax Administrator Required: No Is patient in pain?: No Allergies No Known Allergies Allergy (Unverified 05/22/25 08:37) Medications ???Medication ???Instructions ???Recorded ???Confirmed ???Type NK 04/18/25 05/22/25 History Is last menstrual period known: Yes Last Menstrual Period: 04/27/25 Post menopausal: No Patient : No : No [facility] Medical History Hidradenitis Hidradenitis suppurativa Social History household members: spouse current occupational status: 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 (more content not included)... Normal [facility] PROGESTERONE 4317on 05-19-20 25 PROGESTERONE 12.4 ng/mL Normal . [facility] Comment on above: Order Comment: N Result Comment: Foll icular phase 0.1 - 0.9 Luteal phase 1.8 - 23.9 Ovulation phase 0.1 - 12.0 First trimester 11.0 - 44.3 Second trimester 25.4 - 83.3 Third trimester 58.7 - 214.0 Postmenopausal 0.0 - 0.1 Performed at: [facility] [employer] [address] [id number] Tools Developer: Ismael Acevedo PhD, Phone: [phone] Performed By: #### L 801.2600 #### [facility] Laboratory [address] [place], [address] DHEA Sulfateon 05-06-2025 DHEA SULFATE 121.0 ug/dL Normal 84.8-378.0 [facility] Comment on above: Order Comment: N Performed By: #### L 900.0111, L3100.5400, L501.9520, L3300.1500, L3400.4800 #### [facility] Laboratory [address] [place], [address] PROLACTIN 4465on 05-06-2025 PROLACTIN 17.4 ng/mL Normal 4.8-33.4 [facility] Comment on above: Performed By: #### L 900.0111, L3100.5400, L501.9520, L3300.1500, L3400.4800 #### [facility] Laboratory [address] [place], [address] Testosterone Freeon 05-06-20 25 TESTOSTER FREE 0.6 pg/mL Normal 0.0-4.2 [facility] Comment on above: Result Comment: Perf ormed at: [address] [id number] Tools Developer: Ismael Acevedo PhD, Phone: [phone] Performed at: [facility] - [facility] [id number] Tools Developer: Chanel Zelaya MD, Phone: [phone] Performed By: #### L 900.0111, L3100.5400, L501.9520, L3300.1500, L3400.4800 #### [facility] Laboratory [address] [place], [place], [id number] L900.0111on 04-28-2025 REPROSOURCE SEE SCANNED REPORT Normal [facility] Comment on above: Performed By: #### L 900.0111, L3100.5400, L501.9520, L3300.1500, L3400.4800 #### [facility] Laboratory [address] [facility] [place], [place], [address] No Panel InformationOrdered By: Carmella Clifford on 04-28-2025 Miscellaneous Test Comment SEE SCANNED REPORT [facility] Serum or plasma free testost erone measurement (mass/volume)Ordered By: Carmella Clifford on 04-28-2025 Testosterone Free [Mass/Vol] 0.6 pg/mL 0.0-4.2 [facility] Comment on above: Performed at: [address] [id number] Director: Ismael Acevedo PhD, Phone: [phone] at: [facility] [id number] Director: Chanel Zelaya MD, Phone: [phone] Serum or plasma prolactin me asurement (mass/volume)Ordered By: Carmella Clifford on 04-28-2025 Prolactin [Mass/Vol] 17.4 ng/mL 4.8-33.4 [facility] TSH DL <= 0.005 mIU/L QnOrde red By: Carmella Clifford on 04-28-2025 TSH Qn 3.960 uIU/mL 0.300-4.200 [facility] Thyroid Stim Hormone (TSH)on 04-28-2025 TSH 3.960 uIU/mL Normal 0.300-4.200 [facility] Comment on above: Performed By: #### L 900.0111, L3100.5400, L501.9520, L3300.1500, L3400.4800 #### [facility] Laboratory [address] [place], [address] PAP I-G w/rfx hrHPV-Aptimaon 04-25-2025 ADEQ Comment Normal . [facility] Comment on above: Order Comment: Speci men Comment: [id number] Specimen Comment: No. of containers..01 ThinPrep Vial Result Comment: Sati sfactory for evaluation. Endocervical and/or squamous metaplastic cells (endocervical component) are present. Performed By: #### L 7000.1800, L7400.0353 #### [facility] [address] [place], [address] Performed By: #### L 7400.0353, L7000.1800 #### [facility] [address] [place], [address] COMM . Normal . [facility] Comment on above: Order Comment: Speci men Comment: [id number] Specimen Comment: No. of containers..01 ThinPrep Vial Performed By: #### L 7000.1800, L7400.0353 #### [facility] Laboratory [address] [place], [address] Performed By: #### L 7400.0353, L7000.1800 #### [facility] [address] [place], [address] COMMENT Comment Normal . [facility] Comment on above: Order Comment: Speci men Comment: [id number] Specimen Comment: No. of containers..01 ThinPrep Vial Result Comment: This liquid based ThinPrep(R) pap test was screened with the use of an image guided system. Performed By: #### L 7000.1800, L7400.0353 #### [facility] [address] [place], [address] Performed By: #### L 7400.0353, L7000.1800 #### [facility] [address] [place], [address] DIAG Comment Abnormal . [facility] Comment on above: Order Comment: Speci men Comment: [id number] Specimen Comment: No. of containers..01 ThinPrep Vial Result Comment: EPIT HELIAL CELL ABNORMALITY. ATYPICAL SQUAMOUS CELLS OF UNDETERMINED SIGNIFICANCE (ASC-US). Performed By: #### L 7000.1800, L7400.0353 #### [facility] Laboratory [address] [place], [address] Performed By: #### L 7400.0353, L7000.1800 #### [facility] [address] [place], [address] HPV APTIMA, HR Negative Normal Negative [facility] Comment on above: Order Comment: Speci men Comment: [id number] Specimen Comment: No. of containers..01 ThinPrep Vial Result Comment: This nucleic acid amplification test detects fourteen high- risk HPV types (16,18,31,33,35,39,45,51,52,56,58,59,66,68) without differentiation. Performed at: - [address] [id number] Tools Developer: Jackie Delgado MD, Phone: [phone] Performed at: = - [address] [id number] Tools Developer: Jackie Dlegado MD, Phone: [phone] Performed By: #### L 7000.1800, L7400.0353 #### [facility] [address] [place], [address] Performed By: #### L 7400.0353, L7000.1800 #### [facility] [address] [place], [address] HPV RFLX Comment Normal . [facility] Comment on above: Order Comment: Speci men Comment: [id number] Specimen Comment: No. of containers..01 ThinPrep Vial Result Comment: See below for HPV testing results. Performed By: #### L 7000.1800, L7400.0353 #### [facility] [address] [place], [address] Performed By: #### L 7400.0353, L7000.1800 #### [facility] [address] [place], [address] PAPSMR Comment Normal . [facility] Comment on above: Order Comment: Speci men Comment: [id number] Specimen Comment: No. of containers..01 ThinPrep Vial [...] Performed By: #### L 7000.1800, L7400.0353 #### [facility] [address] [place], [address] Performed By: #### L 7400.0353, L7000.1800 #### [facility] [address] [place], [address] Path.prov.IDC-9 Comment Normal . [facility] Comment on above: Order Comment: Speci men Comment: [id number] Specimen Comment: No. of containers..01 ThinPrep Vial Result Comment: R87. 610 Performed By: #### L 7000.1800, L7400.0353 #### [facility] [address] [place], [address] Performed By: #### L 7400.0353, L7000.1800 #### [facility] [address] [place], [address] PERFORM Comment Normal . [facility] Comment on above: Order Comment: Speci men Comment: [id number] Specimen Comment: No. of containers..01 ThinPrep Vial Result Comment: Imani Moya, Tuber Machine Operator (ASCP) Performed By: #### L 7000.1800, L7400.0353 #### [facility] [address] [place], [address] Performed By: #### L 7400.0353, L7000.1800 #### [facility] [address] [place], [address] SIGN Comment Normal . [facility] Comment on above: Order Comment: Speci men Comment: [id number] Specimen Comment: No. of containers..01 ThinPrep Vial Result Comment: Gloria Oliver MD, Pathologist Performed By: #### L 7000.1800, L7400.0353 #### [facility] [address] [place], [address] Performed By: #### L 7400.0353, L7000.1800 #### [facility] [address] [place], [address] Chlamydia/GC AISHA aptimaon CHLAMY,NUC ACID Negative Normal Negative [facility] Comment on above: Performed By: #### L 7000.1800, L7400.0353 #### [facility] Laboratory [address] [place], [address] Performed By: #### L 7400.0353, L7000.1800 #### [facility] [address] [place], [address] GC BY NUC ACID Negative Normal Negative [facility] Comment on above: Result Comment: Perf ormed at: =G - [facility] [address] [place], [place] [id number] Tools Developer: Jackie Delgado MD, Phone: [phone] Performed By: #### L 7000.1800, L7400.0353 #### [facility] [address] [place], [place], [address] Performed By: #### L 7400.0353, L7000.1800 #### [facility] [address] [place], [address] Cervical or vagninal specime n microscopic examination by cytology stain (reported asOrdered By: Carmella Clifford on 04-18-2025 Cytology report Cyto stain Doc (Cvx/Vag) Comment . [facility] Comment on above: The Pap smear is [...] rRNA AISHA+probe Ql (Unsp spec) Negative Negative [facility] Laboratory - CytologyOrdered By: Carmella Clifford on 04-18-2025 Tuber Machine Operator Cyto stain Nom (Cvx/Vag) [ID] Comment . [facility] Comment on above: Imani Moya, Cyto logist (ASCP) Pathologist Cyto stain Nom (Cvx/Vag) [ID] Comment . [facility] Comment on above: Rosita Oliver MD, P athologist Laboratory - Miscellaneous t estsOrdered By: Carmella Clifford on 04-18-2025 Service comment (Unsp spec) [Interp] . . [facility] Neisseria gonorrhoeae nuclei c acid detection by amplified probe techniqueOrdered By: Carmella Clifford on 04-18-2025 N. gonorrhoeae DNA AISHA+probe Ql (Unsp spec) Negative Negative [facility] Comment on above: Performed at: =G - [facility] [address] [place] [id number] Director: Jackie Delgado MD, Phone: [phone] No Panel InformationOrdered By: Carmella Clifford on 04-18-2025 Pap Smear Specimen Adequacy Comment . [facility] Comment on above: Satisfactory for edin luation. Endocervical and/or squamous metaplasticcells (endocervical component) are present. Pathology report final diagnosis Narrative Comment . 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) Chief 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: Annual Income Tax Administrator Required: No Is patient in pain?: No Allergies No Known Allergies Allergy (Unverified 04/18/25 09:16) Medications ???Medication ???Instructions ???Recorded ???Confirmed ???Type NK 04/18/25 04/18/25 History Is last menstrual period known: Yes Last Menstrual Period: 03/27/25 Post menopausal: No Patient : No : No [facility] Medical History (Updated 04/18/25 @ 10:56 by Carmella Clifford NP, ASHLYN-C) Hidradenitis suppurativa Social History (Updated 04/18/25 @ 09:10 by Nalini Crouch) household members: spouse 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 Normal [facility] Repair Service Dispatcher Office Visit Report 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: Annual Income Tax Administrator Required: No Is patient in pain?: No Allergies No Known Allergies Allergy (Unverified 04/18/25 09:16) Medications ???Medication ???Instructions ???Recorded ???Confirmed ???Type NK 04/18/25 04/18/25 History Is last menstrual period known: Yes Last Menstrual Period: 03/27/25 Post menopausal: No Patient : No : No [facility] Medical History (Updated 04/18/25 @ 10:56 by Carmella Clifford NP, ASHLYN-C) Hidradenitis suppurativa Social History (Updated 04/18/25 @ 09:10 by Nalini Crouch) household members: spouse 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 Normal [facility] No Panel Informationon 04-01 Thyroid Stimulating Hormone (TSH) 2.78 uIU/mL 0.358-3.74 [facility] Work Phone: Vital Signs Date Time Vital Sign Value Performing Clinician [facility] 05-22-2025 08:38-0400 Body height 162.56 cm Carmella Clifford MEDICAL INVESTIGATOR-C Work Phone: [facility] 05-22-2025 08:37-0400 Body mass index (BMI) [Ratio] 21.2 kg/m2 Carmella Aquinos MEDICAL INVESTIGATOR-C Work Phone: [facility] 05-22-2025 08:37-0400 Body weight 56.24 kg Carmella Clifford MEDICAL INVESTIGATOR-C Work Phone: [facility] 05-22-2025 08:37-0400 Diastolic blood pressure 75 mm[Hg] Carmella Clifford MEDICAL INVESTIGATOR-C Work Phone: [facility] 05-22-2025 08:37-0400 Systolic blood pressure 123 mm[Hg] Carmella Venessa MEDICAL INVESTIGATOR-C Work Phone: [facility] 04-18-2025 09:06-0400 Body height 162.56 cm Carmella Venessa MEDICAL INVESTIGATOR-C Work Phone: [facility] 04-18-2025 09:06-0400 Body mass index (BMI) [Ratio] 20.8 kg/m2 Carmella Venessa MEDICAL INVESTIGATOR-C Work Phone: [facility] 04-18-2025 09:06-0400 Body weight 55.11 kg Carmella Venessa MEDICAL INVESTIGATOR-C Work Phone: [facility] 04-18-2025 09:06-0400 Diastolic blood pressure 67 mm[Hg] Carmella [place] MEDICAL INVESTIGATOR-C Work Phone: [facility] 04-18-2025 09:06-0400 Systolic blood pressure 101 mm[Hg] Carmella [place] MEDICAL INVESTIGATOR-C Work Phone: [facility] Encounters Encounter Date Encounter Type Care Provider Facility Start: 06-30-2025 ambulatory Ameya Mei Facilit y:[facility] Start: 05-22-2025 End: 05-22-[address] Lupe Veronica MD -[facility] Work Phone: Start: 05-22-2025 End: 05-22-2025 ambulatory Lupe Veronica -[facility] Start: 05-17-2025 End: 05-17-2025 ambulatory Carmella [place] MEDICAL INVESTIGATOR-C Work Phone: -Lab [facility] Start: 05-17-2025 End: 05-17-2025 Patient encounter procedure Carmella Aquinos MEDICAL INVESTIGATOR-C -Lab [facility] Start: 05-17-2025 End: 05-17-2025 ambulatory Carmella Venessa MEDICAL INVESTIGATOR Facility:[facility] Start: 04-28-2025 End: 04-28-2025 ambulatory Carmella Venessa MEDICAL INVESTIGATOR-C Work Phone: -Lab [facility] Start: 04-28-2025 End: 04-28-2025 Patient encounter procedure Carmella Clifford MEDICAL INVESTIGATOR-C -Lab [facility] Start: 04-28-2025 End: 04-28-2025 ambulatory Carmellaestela Clifford MEDICAL INVESTIGATOR Facility:[facility] Start: 04-18-2025 End: 04-18-2025 Patient encounter procedure Carmella Clifford MEDICAL INVESTIGATOR-C -[facility] Work Phone: Start: 04-18-2025 End: 04-18-2025 ambulatory Carmellaestela Clifford Facility:[facility] Start: 04-18-2025 End: 04-18-2025 Patient encounter procedure aCrmella Clifford MEDICAL INVESTIGATOR-C -[facility] Work Phone: Start: 04-18-2025 End: 04-18-2025 Patient encounter status Carmella Clifford MEDICAL INVESTIGATOR-C [facility] Start: 04-18-2025 End: 04-18-2025 ambulatory Carmellaestela Clifford -[facility] Start: 04-18-2025 End: 04-18-2025 ambulatory Carmellaestela Clifford MEDICAL INVESTIGATOR Facility:[facility] Start: 04-01-2022 End: 04-01-2022 Patient encounter procedure [facility]-Laboratory, [facility] Procedures Date Procedure Procedure Detail Performing Clinician Start: 05-17-2025 Serum progesterone measurement Carmella Clifford MEDICAL INVESTIGATOR-C Work Phone: Comment on above: Follicular phase 0.1 - 0.9 Luteal phase 1.8 - 23.9 Ovulation phase 0.1 - 12.0 First trimester 11.0 - 44.3 Second trimester 25.4 - 83.3 Third trimester 58.7 - 214.0 Postmenopausal 0.0 - 0.1Performed at: [facility] [id number] Director: Ismael Acevedo PhD, Phone: [phone] Start: 04-28-2025 Dehydroepiandrostero ne sulfate level Carmella Clifford MEDICAL INVESTIGATOR-C Work Phone: Start: 04-18-2025 Liquid based cervica l cytology screening Carmella Clifford MEDICAL INVESTIGATOR-C Work Phone: Comment on above: EPITHELIAL CELL ABNO RMALITY.ATYPICAL SQUAMOUS CELLS OF UNDETERMINED SIGNIFICANCE (ASC-US). This liquid based Th inPrep(R) pap test was screened withthe use of an image guided system. See below for HPV te sting results. Plan of Treatment Date Care Activity Detail Author Start: 05-22-2025 Serum progesterone measurement [facility] Start: 04-28-2025 Dehydroepiandrostero ne sulfate (DHEA-S) [Mass/volume] in Serum or Plasma [facility] Start: 04-28-2025 Prolactin measurement [facility] Start: 04-28-2025 Testosterone Free [M ass/volume] in Serum or Plasma [facility] Dehydroepiandrostero ne sulfate (DHEA-S) [Mass/volume] in Serum or Plasma [facility] Liquid based cervica l cytology screening [facility] Prolactin measurement [facility] Testosterone Free [M ass/volume] in Serum or Plasma [facility] Thyroid stimulating hormone measurement [facility] Payers Date Payer Category Payer Self-pay 2025 Unknown [id number] Department of [facility] e ([facility] and others) [id number] Private Health Insurance [id number] Private Health Insurance [id number] Unknown [id number] Unknown [id number] Unknown [id number] Unknown [id number] Unknown [id number] Unknown [id number] Unknown [id number] Social History Date Type Detail [facility] Work Phone: Start: 2000 Sex Assigned At Female [facility] Start: 04-18-2025 [facility] Sex Female [facility] Evaluation note 04-18-2025 Note Date & Type Note Facility 04-18-2025 Evaluation note Diagnosis Onset Date Resolution Acne acute April 18 9:01am Fatigue acute April 18 9:01am Hirsutism acute April 18 9:01am Encounter for routine gynecological examination noneactive April 18, 2025 9:01am [facility] Work Phone: Evaluation note 04-18-2025 Note Date & Type Note Facility 04-18-2025 Evaluation note Diagnosis Onset Date Resolution Acne acute April 18 9:01am Fatigue acute April 18 9:01am Hirsutism acute April 18 9:01am Encounter for routine gynecological examination noneactive April 18, 2025 9:01am Acne acute May 22, 2025 8:31am Hirsutism acute May 22, 2025 8:31am Infertility acute May 8:31am [facility] Work Phone: Evaluation note Note Date & Type Note Facility Evaluation note No assessment information availa [facility] Work Phone: Evaluation note Note Date & Type Note Facility Evaluation note Diagnosis Onset Date Resolution Encounter for routine gynecological examination noneactive April 18, 2025 9:01am [facility] Work Phone: Reason for referral (narrative) Note Date & Type Note Facility Reason for referral (narrative) No reason for referral information available [facility] Work Phone: Chief Complaint and Reason for Visit Chief Complaint Admit Date Annual ([facility]) April 18, 2025 9:0 1am INFERTILITY F/U May 22, 2025 8:31am Reason for Visit Admit Date Acne April 18, 2025 9:0 1am Fatigue April 18, 2025 9:0 1am Hirsutism April 18, 2025 9:0 1am Encounter for routine gynecological exam ination April 18, 2025 9:01am Chief Complaint Admit Date Annual ([facility] [employer]) April 18, 2025 9:0 1am Reason for [...] Inactive Member Role/Relationship Status Dates Carmella Clifford MEDICAL INVESTIGATOR, MEDICAL INVESTIGATOR-C Attending physician Active Start: April 28, 2025 End: April 28, 2025 Team Status: Inactive Member Role/Relationship Status Dates Caremlla Clifford NP, MEDICAL INVESTIGATOR-C Attending physician Active Start: May 17, 2025 End: May 17, 2025 Team Status: Inactive Member Role/Relationship Status Dates Dr. Lupe Veronica MD Attending physician Active Start: May 22, 2025 End: May 22, 2025 INFORMATION SOURCE (unrecogn ized section and content) DATE CREATED AUTHOR 04/26/2025 [facility] DATE CREATED AUTHOR AUTHOR'S ORGANIZ ATION 06/26/2025 [facility] FOR RECORDS PERTAINING TO PATIENTS WHO [...] BE BASED ON THE PRIMARY CLINICAL RECORDS. [employer] provides no warranty or guarantee of the accuracy or completeness of information in this document.
== END | disposition home or self-care (01) ==
PROVIDERS: PCP Family Medicine; Referring Provider Obstetrics & Gynecology; Visit Provider Obstetrics & Gynecology
DX: N97.0 Female infertility associated with anovulation (principal)
CPT/HCPCS: 76830; 76856

== ENCOUNTER → 2025-08-17 | Outpatient (CLI) | payer OTHER, SELFPAY ==
--- OUTSIDE RECORDS SUMMARY | 2025-08-17 18:39 | XMS RPT_ITS | CCD ---
Author Organization [facility] Care Team Providers Care Helper/Driver Name Role Phone [employer]enessa SCHO[employer] BUS DRIVER/MECHANIC-C, Carmella Attending Provider [phone] Carmella Clifford Attending Unavailable Carmella Clifford Attending Unavailable Jeremías MORALES, Dr. Andrade Attending Provider Venessa SCHOOL BUS DRIVER/MECHANICAdamCCarmella Attending Physician [phone] Jeremías MORALES, Dr. Andrade Attending Physician Lupe Veronica Attending Unavailable Carmella Clifford Attending Unavailable Carmella Clifford Attending Unavailable Carmella Clifford Attending Unavailable Ameya Mei Primary Care Unavailable Lupe Veronica Referring Unavailable Lupe Veronica Attending Unavailable Medications Current Medications Medication Drug Class(es) Dates Sig (Normalized) Sig (Original) [place] (Nk) (4 sources) Start: 04-18-2025 [place] (Nk) A ctive April 18, 2025 12:00am [...] Comment on above: Refer to Female infertility (2 sources) Female infertility associated [...] Test Name Value Interpretation Reference Range Facility Pelvic w/ Transvaginalon Pelvic w/ Transvaginal [facility] [address] [place] [address] Pelvic w/ Transvaginal MR#: [id number] Acct: [id number] Name: MITCHELL REYNA Rep #: [id number] : 2000 F 25 From: Naeem thornton MD PCP: Dr. Ameya Mei MD Status: REG CLI Study: Pelvic w/ Transvaginal Date of Exam: 06/30/25 Exam# [id number] Ordering Dr: Lupe Veronica PROCEDURE: PELVIC W/ TRANSVAGINAL REASON FOR EXAM: INFERTILITY TECHNIQUE: Procedure Code: [id number] Modality: US Procedure: PELVIC W/ TRANSVAGINAL COMPARISON: None FINDINGS: LMP: June 24, 2025. Measurements: Uterus: 8.4 cm x 5 cm x 3.3 cm with a volume of 71.9 mL Endometrial Thickness: 2 mm. It is hyperechoic. Right Ovary: 3.7 cm x 3 cm x 2.6 cm with a volume of 14.8 mL. Left Ovary: 4.7 cm x 2.9 cm x 3 cm with a volume of 21.3 mL. TRANSABDOMINAL: Uterus: Normal size, myometrial echotexture, and contour. Endometrium: Unremarkable. Right ovary: Multiple small follicles are visualized. Left ovary: Multiple small follicles are visualized. Other: No large pelvic mass identified. Transvaginal sonography was performed to better visualize the endometrium. TRANSVAGINAL: Uterus: Anteverted. Normal contour and myometrial echotexture. Endometrium: Normal echotexture. Right ovary: Normal size and echotexture. Left ovary: Normal size and echotexture. Other adnexal findings: None. Cul-de-sac: No free intraperitoneal fluid identified. Tenderness: No tenderness US/Pelvic w/ Transvaginal IMPRESSION: NORMAL TRANSABDOMINAL AND TRANSVAGINAL PELVIC ULTRASOUND. Multiple small bilateral ovarian follicles are seen. Reading Location: [place] [address] CC: Dr. Ameya Mei MD; Dr. Lupe Veronica MD Cloth Coverer: Signed Normal [facility] Procedure Tech Office Visit Reporton 05-22-2025 Procedure Tech Office Visit Report [facility]'s [address], [address] [place] [address] OFFICE VISIT Date of Service: 05/22/25 MR#: [id number] Acct: [id number] Name: MITCHELL REYNA Rep #: [id number] : 2000 Provider: Dr. 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 Is patient in pain?: No Allergies No Known Allergies Allergy (Unverified 05/22/25 08:37) Medications ???Medication ???Instructions ???Recorded ???Confirmed ???Type NK 04/18/25 05/22/25 History Is last menstrual period known: Yes Last Menstrual Period: 04/27/25 Post menopausal: No Patient : No : No [facility] Medical History Hidradenitis Hidradenitis suppurativa Social History household members: spouse current occupational status: employed 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 (more content not included)... Normal [facility] PROGESTERONE 4317on 05-19-20 25 PROGESTERONE 12.4 ng/mL Normal . [facility] Comment on above: Order Comment: N Result Comment: Foll icular phase 0.1 - 0.9 Luteal phase 1.8 - 23.9 Ovulation phase 0.1 - 12.0 First trimester 11.0 - 44.3 Second trimester 25.4 - 83.3 Third trimester 58.7 - 214.0 Postmenopausal 0.0 - 0.1 Performed at: [facility] [address] [id number] Stonecutter Apprentice Hand: Ismael Acevedo PhD, Phone: [phone] Performed By: #### L 801.260 #### [facility] [address] [place], [place], [address] DHEA Sulfateon 05-06-2025 DHEA SULFATE 121.0 ug/dL Normal 84.8-378.0 [facility] Comment on above: Order Comment: N Performed By: #### L 900.0111, L3100.5400, L501.9520, L3300.1500, L3400.4800 #### [facility] [address] [place], [place], [address] PROLACTIN 4465on 05-06-2025 PROLACTIN 17.4 ng/mL Normal 4.8-33.4 [facility] Comment on above: Performed By: #### L 900.0111, L3100.5400, L501.9520, L3300.1500, L3400.4800 #### [facility] [address] [place], [place], [address] Testosterone Freeon 05-06-20 25 TESTOSTER FREE 0.6 pg/mL Normal 0.0-4.2 [facility] Comment on above: Result Comment: Perf ormed at: [facility] [place] [address] [place], [place] [id number] Stonecutter Apprentice Hand: Ismael Acevedo PhD, Phone: [phone] Performed at: [facility] [employer] [id number] Stonecutter Apprentice Hand: Chanel Zelaya MD, Phone: [phone] Performed By: #### L 900.0111, L3100.5400, L501.9520, L3300.1500, L3400.4800 ####[facility] [address] [place], [place], [address] L900.0111on 04-28-2025 RE[employer] SEE SCANNED REPORT Normal [facility] Comment on above: Performed By: #### L 900.0111, L3100.5400, L501.9520, L3300.1500, L3400.4800 #### [facility] [address] [place], [place], [address] No Panel InformationOrdered By: Carmella Clifford on 04-28-2025 Miscellaneous Test Comment SEE SCANNED REPORT [facility] Serum or plasma free testost erone measurement (mass/volume)Ordered By: Carmella Clifford on 04-28-2025 Testosterone Free [Mass/Vol] 0.6 pg/mL 0.0-4.2 [facility] Comment on above: Performed at: - [address] [id number] Director: Ismael Acevedo PhD, Phone: [phone] at: [address] [id number] Director: Chanel Zelaya MD, Phone: [phone] Serum or plasma prolactin me asurement (mass/volume)Ordered By: Carmella Clifford on 04-28-2025 Prolactin [Mass/Vol] 17.4 ng/mL 4.8-33.4 [facility] TSH DL <= 0.005 mIU/L QnOrde red By: Carmella Clifford on 04-28-2025 TSH Qn 3.960 uIU/mL 0.300-4.200 [facility] Thyroid Stim Hormone (TSH)on 04-28-2025 TSH 3.960 uIU/mL Normal 0.300-4.200 [facility] Comment on above: Performed By: #### L 900.0111, L3100.5400, L501.9520, L3300.1500, L3400.4800 #### [facility] [address] [place], [address] PAP I-G w/rfx hrHPV-Aptimaon 04-25-2025 ADEQ Comment Normal . [facility] Comment on above: Order Comment: Speci men Comment: [id number] Specimen Comment: No. of containers..01 ThinPrep Vial Result Comment: Sati sfactory for evaluation. Endocervical and/or squamous metaplastic cells (endocervical component) are present. Performed By: #### L 7000.1800, L7400.0353 #### [facility] [address] [place], [address] Performed By: #### L 7400.0353, L7000.1800 #### [facility] [address] [place], [address] COMM . Normal . [facility] Comment on above: Order Comment: Speci men Comment: [id number] Specimen Comment: No. of containers..01 ThinPrep Vial Performed By: #### L 7000.1800, L7400.0353 #### [facility] [address] [place], [address] Performed By: #### L 7400.0353, L7000.1800 #### [facility] [address] [place], [address] COMMENT Comment Normal . [facility] Comment on above: Order Comment: Speci men Comment: [id number] Specimen Comment: No. of containers..01 ThinPrep Vial Result Comment: This liquid based ThinPrep(R) pap test was screened with the use of an image guided system. Performed By: #### L 7000.1800, L7400.0353 #### [facility] [address] [place], [address] Performed By: #### L 7400.0353, L7000.1800 #### [facility] [address] [place], [address] DIAG Comment Abnormal . [facility] Comment on above: Order Comment: Speci men Comment: [id number] Specimen Comment: No. of containers..01 ThinPrep Vial Result Comment: EPIT HELIAL CELL ABNORMALITY. ATYPICAL SQUAMOUS CELLS OF UNDETERMINED SIGNIFICANCE (ASC-US). Performed By: #### L 7000.1800, L7400.0353 #### [facility] [address] [place], [address] Performed By: #### L 7400.0353, L7000.1800 #### [facility] [address] [place], [address] HPV APTIMA, HR Negative Normal Negative [facility] Comment on above: Order Comment: Speci men Comment: [id number] Specimen Comment: No. of containers..01 ThinPrep Vial Result Comment: This nucleic acid amplification test detects fourteen high- risk HPV types (16,18,31,33,35,39,45,51,52,56,58,59,66,68) without differentiation. Performed at: [address] [id number] Stonecutter Apprentice Hand: Jackie Delgado MD, Phone: [phone] Performed at: =[address] [id number] Stonecutter Apprentice Hand: Jackie Delgado MD, Phone: [phone] Performed By: #### L 7000.1800, L7400.0353 #### [facility] [address] [place], [address] Performed By: #### L 7400.0353, L7000.1800 #### [facility] [address] [place], [address] HPV RFLX Comment Normal . [facility] Comment on above: Order Comment: Speci men Comment: [id number] Specimen Comment: No. of containers..01 ThinPrep Vial Result Comment: See below for HPV testing results. Performed By: #### L 7000.1800, L7400.0353 #### [facility] [address] [place], [address] Performed By: #### L 7400.0353, L7000.1800 #### [facility] [address] [place], [address] PAPSMR Comment Normal . [facility] Comment on above: Order Comment: Speci men Comment: [id number] Specimen Comment: No. of containers..01 ThinPrep Vial [...] Performed By: #### L 7000.1800, L7400.0353 #### [facility] [address] [place], [address] Performed By: #### L 7400.0353, L7000.1800 #### [facility] [address] [place], [address] Path.prov.IDC-9 Comment Normal . [facility] Comment on above: Order Comment: Speci men Comment: [id number] Specimen Comment: No. of containers..01 ThinPrep Vial Result Comment: R87. 610 Performed By: #### L 7000.1800, L7400.0353 #### [facility] [address] [place], [address] Performed By: #### L 7400.0353, L7000.1800 #### [facility] [address] [place], [address] PERFORM Comment Normal . [facility] Comment on above: Order Comment: Speci men Comment: [id number] Specimen Comment: No. of containers..01 ThinPrep Vial Result Comment: Imani Moya, Kier Operator (ASCP) Performed By: #### L 7000.1800, L7400.0353 #### [facility] [address] [place], [address] Performed By: #### L 7400.0353, L7000.1800 #### [facility] [address] [place], [address] SIGN Comment Normal . [facility] Comment on above: Order Comment: Speci men Comment: [id number] Specimen Comment: No. of containers..01 ThinPrep Vial Result Comment: Gloria Oliver MD, Pathologist Performed By: #### L 7000.1800, L7400.0353 #### [facility] [address] [place], [address] Performed By: #### L 7400.0353, L7000.1800 #### [facility] [address] [place], [address] Chlamydia/GC AISHA aptimaon CHLAMY,NUC ACID Negative Normal Negative [facility] Comment on above: Performed By: #### L 7000.1800, L7400.0353 #### [facility] [address] [place], [address] Performed By: #### L 7400.0353, L7000.1800 #### [facility] [address] [place], [place], [address] GC BY NUC ACID Negative Normal Negative [facility] Comment on above: Result Comment: Perf ormed at: =G - [facility] [address] [place] [id number] Stonecutter Apprentice Hand: Jackie Delgado MD, Phone: [phone] Performed By: #### L 7000.1800, L7400.0353 #### [facility] [address] [place], [place], [address] Performed By: #### L 7400.0353, L7000.1800 #### [facility] [address] [place], [place], [address] Cervical or vagninal specime n microscopic examination by cytology stain (reported asOrdered By: Carmella Clifford on 04-18-2025 Cytology report Cyto stain Doc (Cvx/Vag) Comment . [facility] Comment on above: The Pap smear is [...] rRNA AISHA+probe Ql (Unsp spec) Negative Negative [facility] Laboratory - CytologyOrdered By: Carmella Clifford on 04-18-2025 Kier Operator Cyto stain Nom (Cvx/Vag) [ID] Comment . [facility] Comment on above: Imani Moya, Cyto logist (ASCP) Pathologist Cyto stain Nom (Cvx/Vag) [ID] Comment . [facility] Comment on above: Rosita Oliver MD, P athologist Laboratory - Miscellaneous t estsOrdered By: Carmella Clifford on 04-18-2025 Service comment (Unsp spec) [Interp] . . [facility] Neisseria gonorrhoeae nuclei c acid detection by amplified probe techniqueOrdered By: Carmella Clifford on 04-18-2025 N. gonorrhoeae DNA AISHA+probe Ql (Unsp spec) Negative Negative [facility] Comment on above: Performed at: =[address] [place] [id number] Director: Jackie Delgado MD, Phone: [phone] No Panel InformationOrdered By: Carmella Clifford on 04-18-2025 Pap Smear Specimen Adequacy Comment . [facility] Comment on above: Satisfactory for edin luation. Endocervical and/or squamous metaplasticcells (endocervical component) are present. Pathology report final diagnosis Narrative Comment . 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 Is patient in pain?: No Allergies No Known Allergies Allergy (Unverified 04/18/25 09:16) Medications ???Medication ???Instructions ???Recorded ???Confirmed ???Type NK 04/18/25 04/18/25 History Is last menstrual period known: Yes Last Menstrual Period: 03/27/25 Post menopausal: No Patient : No : No [facility] History (Updated 04/18/25 @ 10:56 by Carmella Clifford NP, ASHLYN-C) Hidradenitis suppurativa Social History (Updated 04/18/25 @ 09:10 by Nalini Crouch) household members: spouse current occupational status: employed 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 Is patient in pain?: No Allergies No Known Allergies Allergy (Unverified 04/18/25 09:16) Medications ???Medication ???Instructions ???Recorded ???Confirmed ???Type NK 04/18/25 04/18/25 History Is last menstrual period known: Yes Last Menstrual Period: 03/27/25 Post menopausal: No Patient : No : No [facility] Medical History (Updated 04/18/25 @ 10:56 by Carmella Clifford NP, VAMSHI) Hidradenitis suppurativa Social History (Updated 04/18/25 @ 09:10 by Nalini Crouch) household members: spouse current occupational status: employed 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 Normal [facility] No Panel Informationon 04-01 Thyroid Stimulating Hormone (TSH) 2.78 uIU/mL 0.358-3.74 [facility] Work Phone: Vital Signs Date Time Vital Sign Value Performing Clinician [facility] 05-22-2025 08:38-0400 Body height 162.56 cm Carmella Clifford SCHOOL BUS DRIVER/MECHANIC-C Work Phone: [facility] 05-22-2025 08:37-0400 Body mass index (BMI) [Ratio] 21.2 kg/m2 Carmella Clifford SCHOOL BUS DRIVER/MECHANIC-C Work Phone: [facility] 05-22-2025 08:37-0400 Body weight 56.24 kg Carmella Clifford SCHOOL BUS DRIVER/MECHANIC-C Work Phone: [facility] 05-22-2025 08:37-0400 Diastolic blood pressure 75 mm[Hg] Carmella Venessa SCHOOL BUS DRIVER/MECHANIC-C Work Phone: [facility] 05-22-2025 08:37-0400 Systolic blood pressure 123 mm[Hg] Carmellaestela Aquinos SCHOOL BUS DRIVER/MECHANIC-C Work Phone: [facility] 04-18-2025 09:06-0400 Body height 162.56 cm Carmellaestela Aquinos SCHOOL BUS DRIVER/MECHANIC-C Work Phone: [facility] 04-18-2025 09:06-0400 Body mass index (BMI) [Ratio] 20.8 kg/m2 Carmellaestela Aquinos SCHOOL BUS DRIVER/MECHANIC-C Work Phone: [facility] 04-18-2025 09:06-0400 Body weight 55.11 kg Carmellaestela Aquinos SCHOOL BUS DRIVER/MECHANIC-C Work Phone: [facility] 04-18-2025 09:06-0400 Diastolic blood pressure 67 mm[Hg] Carmella Lima SCHOOL BUS DRIVER/MECHANIC-C Work Phone: [facility] 04-18-2025 09:06-0400 Systolic blood pressure 101 mm[Hg] Carmellaestela Aquinos SCHOOL BUS DRIVER/MECHANIC-C Work Phone: [facility] Encounters Encounter Date Encounter Type Care Provider Facility Start: 06-30-2025 End: 06-30-2025 ambulatory Ameya Mei Facility:[facility] Start: 05-22-2025 End: 05-22-[address] Lupe Veronica MD -[facility] Work Phone: Start: 05-22-2025 End: 05-22-2025 ambulatory Lupe Veronica -[facility] Start: 05-17-2025 End: 05-17-2025 ambulatory Carmella Lima SCHOOL BUS DRIVER/MECHANIC-C Work Phone: -Lab [facility] Start: 05-17-2025 End: 05-17-2025 Patient encounter procedure Carmella Lima SCHOOL BUS DRIVER/MECHANIC-C -Lab [facility] Start: 05-17-2025 End: 05-17-2025 ambulatory Carmella Clifford Facility:[facility] Start: 04-28-2025 End: 04-28-2025 ambulatory Carmella Clifford SCHOOL BUS DRIVER/MECHANIC-C Work Phone: -Lab [facility] Start: 04-28-2025 End: 04-28-2025 Patient encounter procedure Carmella Clifford SCHOOL BUS DRIVER/MECHANIC-C -Lab [facility] Start: 04-28-2025 End: 04-28-2025 ambulatory Carmellaestela Clifford Facility:[facility] Start: 04-18-2025 End: 04-18-2025 Patient encounter procedure Carmella Clifford SCHOOL BUS DRIVER/MECHANIC-C -[facility] Work Phone: Start: 04-18-2025 End: 04-18-2025 ambulatory Carmellaestela Clifford Facility:[facility] Start: 04-18-2025 End: 04-18-2025 Patient encounter procedure Carmella Clifford SCHOOL BUS DRIVER/MECHANIC-C -[facility] Work Phone: Start: 04-18-2025 End: 04-18-2025 Patient encounter status Carmella Clifford SCHOOL BUS DRIVER/MECHANIC-C [facility] Start: 04-18-2025 End: 04-18-2025 ambulatory Carmellaestela Clifford -[facility] Start: 04-18-2025 End: 04-18-2025 ambulatory Carmellaestela Clifford Facility:[facility] Start: 04-01-2022 End: 04-01-2022 Patient encounter procedure [facility]-Laboratory, [facility] Date Procedure Procedure Detail Performing Clinician Start: 05-17-2025 Serum progesterone measurement Carmellaestela Aquinos SCHOOL BUS DRIVER/MECHANIC-C Work Phone: Comment on above: Follicular phase 0.1 - 0.9 Luteal phase 1.8 - 23.9 Ovulation phase 0.1 - 12.0 First trimester 11.0 - 44.3 Second trimester 25.4 - 83.3 Third trimester 58.7 - 214.0 Postmenopausal 0.0 - 0.1Performed at: [facility] [place] [id number] [place], [place] [id number] Director: Ismael Acevedo PhD, Phone: [phone] Start: 04-28-2025 Dehydroepiandrostero ne sulfate level Carmella Clifford SCHOOL BUS DRIVER/MECHANIC-C Work Phone: Start: 04-18-2025 Liquid based cervica l cytology screening Carmella Clifford SCHOOL BUS DRIVER/MECHANIC-C Work Phone: Comment on above: EPITHELIAL CELL ABNO RMALITY.ATYPICAL SQUAMOUS CELLS OF UNDETERMINED SIGNIFICANCE (ASC-US). This liquid based Th inPrep(R) pap test was screened withthe use of an image guided system. See below for HPV te sting results. Plan of Treatment Date Care Activity Detail Author Start: 05-22-2025 Serum progesterone measurement [facility] Start: 04-28-2025 Dehydroepiandrostero ne sulfate (DHEA-S) [Mass/volume] in Serum or Plasma [facility] Start: 04-28-2025 Prolactin measurement [facility] Start: 04-28-2025 Testosterone Free [M ass/volume] in Serum or Plasma [facility] Dehydroepiandrostero ne sulfate (DHEA-S) [Mass/volume] in Serum or Plasma [facility] Liquid based cervica l cytology screening [facility] Prolactin measurement [facility] Testosterone Free [M ass/volume] in Serum or Plasma [facility] Thyroid stimulating hormone measurement [facility] Payers Date Payer Category Payer Self-pay 2025 Unknown [id number] Department of [facility] e ([facility] and others) [id number] Private Health Insurance [id number] Private Health Insurance [id number] Unknown [id number] Unknown [id number] Unknown [id number] Unknown [id number] Unknown [id number] Unknown [id number] Social History Date Type Detail Facility Tobacco smoking stat [facility] Unknown if ever smoked [facility] Work Phone: Start: 2000 Sex Assigned At Female [facility] Start: 04-18-2025 [facility] ([facility] Sex Female [facility] Evaluation note 04-18-2025 Note Date & Type Note Facility 04-18-2025 Evaluation note Diagnosis Onset Date Resolution Acne acute April 18 9:01am Fatigue acute April 18 9:01am Hirsutism acute April 18 9:01am Encounter for routine gynecological examination noneactive April 18, 2025 9:01am [facility] Work Phone: Evaluation note 04-18-2025 Note Date & Type Note Facility 04-18-2025 Evaluation note Diagnosis Onset Date Resolution Acne acute April 18 9:01am Fatigue acute April 18 9:01am Hirsutism acute April 18 9:01am Encounter for routine gynecological examination noneactive April 18, 2025 9:01am Acne acute May 22, 2025 8:31am Hirsutism acute May 22, 2025 8:31am Infertility acute May 8:31am [facility] Work Phone: Evaluation note Note Date & Type Note Facility Evaluation note No assessment information availa ble [facility] Work Phone: Evaluation note Note Date & Type Note Facility Evaluation note Diagnosis Onset Date Resolution Encounter for routine gynecological examination noneactive April 18, 2025 9:01am [facility] [employer] Work Phone: Reason for referral (narrative) Note Date & Type Note Facility Reason for referral (narrative) No reason for referral information available [facility] [employer] Work Phone: Chief Complaint and Reason for Visit Chief Complaint 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) April 18, 2025 9:0 1am INFERTILITY F/U May 22, 2025 8:31am Reason for Visit Admit Date Acne April 18, 2025 9:0 1am Fatigue April 18, 2025 9:0 1am Hirsutism April 18, 2025 9:0 1am Encounter for routine gynecological exam ination April 18, 2025 9:01am Chief Complaint 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 Lupe Veronica MD Attending Provider Active Start: May 22, 2025 End: May 22, 2025 Team Status: Inactive Member Role/Relationship Status Dates BRYAN Martinez NPC Attending physician Active Start: April 18, 2025 End: April 18, 2025 Team Status: Inactive Member Role/Relationship Status Dates Carmella Lima SCHOOL BUS DRIVER/MECHANIC, SCHOOL BUS DRIVER/MECHANIC-C Attending physician Active Start: April 18, 2025 End: April 18, 2025 Team Status: Inactive Member Role/Relationship Status Dates Carmella Venessa SCHOOL BUS DRIVER/MECHANIC, SCHOOL BUS DRIVER/MECHANIC-C Attending physician Active Start: April 28, 2025 End: April 28, 2025 Team Status: Inactive Member Role/Relationship Status Dates Carmella Venessa NP, SCHOOL BUS DRIVER/MECHANIC-C Attending physician Active Start: May 17, 2025 End: May 17, 2025 Team Status: Inactive Member Role/Relationship Status Dates Dr. Lupe Veronica MD Attending physician Active Start: May 22, 2025 End: May 22, 2025 INFORMATION SOURCE (unrecogn ized section and content) DATE CREATED AUTHOR 04/26/2025 [facility] DATE CREATED AUTHOR 'S ORGANIZ ATION 07/14/2025 [facility] FOR RECORDS PERTAINING TO PATIENTS WHO ARE [...] BE BASED ON THE PRIMARY CLINICAL RECORDS. [facility]. provides no warranty or guarantee of the accuracy or completeness of information in this document.
== END | disposition home or self-care (01) ==
LOC: LABSPEC 16:52
PROVIDERS: PCP Family Medicine; Visit Provider Physician Assistant Surgical
DX: M54.9 Dorsalgia, unspecified (principal)
CPT/HCPCS: 87086; 87088